=== PATIENT | female | born 1980 ===

== ENCOUNTER 2017-04-12 15:59 | Emergency (ER) | payer MEDICAID ==
[2017-04-12 16:20] VITALS: BP 123/50; PULSE 83; RESP 16; TEMP 97.9; O2SAT 100
--- NOTE | 2017-04-12 17:20 | ED PDOC ---
HPI: CCC, URI, Sore Throat Time Seen by Provider: 04/12/17 16:52 Chief Complaint (Nursing): Cough, Cold, Congestion Chief Complaint (Provider): COugh, cold, congestion History Per: Patient History/Exam Limitations: no limitations Have you had recent travel within the past 21 days to any of the following countries: [place], [place], [place] or [place]?: No Onset/Duration Of Symptoms: Days Current Symptoms Are (Timing): Still Present Location Of Pain: Throat Associated Symptoms: Fever (tactile) Additional History Per: Patient Additional Complaint(s): 36yo female presents to the ED complaining of cold, congestion and tactile fever for the past week. Patient additionally reports a productive cough and general malaise. She denies taking any medications for her symptoms. Patient denies any recent foreign travels, known sick contacts. She offers no additional medical complaints. Past Medical History Vital Signs: Last Vital Signs Temp 97.9 F 04/12/17 16:17 Pulse 83 04/12/17 16:17 Resp 16 04/12/17 16:17 BP 123/50 L 04/12/17 16:17 Pulse Ox 100 04/12/17 17:20 - Family History Family History: States: Diabetes - Home Medications Home Medications: Ambulatory Orders Medication Instructions Recorded Cyclobenzaprine [Flexeril] 5 mg PO Q8 PRN #15 tab 04/23/16 Naproxen [Naprosyn] 1 tab PO BID PRN #60 tab 04/23/16 Dextromethorphan Polistirex 30 mg PO BID #100 cleopatra.er.12h 04/12/17 [Delsym] Guaifenesin [Mucinex] 600 mg PO BID #14 tab.er.12h 04/12/17 Ketotifen Fumarate [Eye Itch 1 - 2 ml OP BID #10 ml 04/12/17 Relief] - Allergies Allergies/Adverse Reactions: Allergies Allergy/AdvReac Type Severity Reaction Status Date / Time No Known Allergies Allergy Verified 04/12/17 16:17 Review of Systems Constitutional: Positive for: Fever, Chills, Malaise Respiratory: Positive for: Cough, Sputum Neurological: Positive for: Headache Physical Exam - Reviewed Nursing Documentation Reviewed: Yes Vital Signs Reviewed: Yes - Physical Exam Appears: Positive for: Non-toxic, No Acute Distress Head Exam: Positive for: ATRAUMATIC, NORMAL INSPECTION, NORMOCEPHALIC Skin: Positive for: Warm, Dry Eye Exam: Positive for: EOMI, PERRL ENT: Positive for: Normal ENT Inspection, TM Is/Are (normal bilaterally), Sinus Pain/Drainage (post nasal drip noted), Other (normal turbinates). Negative for : Tonsillar Exudate, Tonsillar Swelling Neck: Positive for: Supple Cardiovascular/Chest: Positive for: Regular Rate, Rhythm Respiratory: Positive for: Normal Breath Sounds. Negative for: Respiratory Distress Lymphatic: Positive for: Adenopathy - ECG O2 Sat by Pulse Oximetry: 100 (RA) Pulse Ox Interpretation: Normal Medical Decision Making Medical Decision Making: Time: 1700 Impression: Viral illness Plan: -- Patient to be discharged home with Delsyn, Mucinex and eye drops. Advised to follow up with her PCP and to return to the ED if symptoms worsen or new symptoms arise. Scribe Attestation: Documented by Domi Hernandez acting as a scribe for DEWAYNE Amos Provider Attestation: All medical record entries made by the Scribe were at my direction and personally dictated by me. I have reviewed the chart and agree that the record accurately reflects my personal performance of the history, physical exam, medical decision making, and the department course for this patient. I have also personally directed, reviewed, and agree with the discharge instructions and disposition. Disposition - Clinical Impression Clinical Impression: Viral infection Counseled Patient/Family Regarding: Diagnosis, Need For Followup, Rx Given - Disposition Disposition: Routine/Home Disposition Time: 17:20 Condition: STABLE Prescriptions: Dextromethorphan Polistirex [Delsym] 30 mg PO BID #100 cleopatra.er.12h Guaifenesin [Mucinex] 600 mg PO BID #14 tab.er.12h Ketotifen Fumarate [Eye Itch Relief] 1 - 2 ml OP BID #10 ml Instructions: Viral Syndrome (ED) Forms: [employer] (German)
== END 2017-04-12 17:23 | disposition home or self-care (01) ==
LOC: H.ER 15:59
DX: B34.9 Viral infection, unspecified (principal)

== ENCOUNTER 2017-09-15 11:12 | Emergency (ER) | payer MEDICAID ==
[2017-09-15 11:22] VITALS: BMI 33.7
[2017-09-15 11:24] VITALS: RESP 18; TEMP 98.6
--- NOTE | 2017-09-15 13:07 | RAD ---
HISTORY: chest pain COMPARISON: 04/23/2016 TECHNIQUE: Chest PA and lateral FINDINGS: LUNGS: No active pulmonary disease. PLEURA: No significant pleural effusion identified. No pneumothorax apparent. CARDIOVASCULAR: Normal. OSSEOUS STRUCTURES: No significant abnormalities. VISUALIZED UPPER ABDOMEN: Normal. OTHER FINDINGS: None. IMPRESSION: No active disease.
--- NOTE | 2017-09-15 13:24 | ED PDOC ---
HPI: General Adult Time Seen by Provider: 09/15/17 12:04 Chief Complaint (Nursing): Chest Pain Chief Complaint (Provider): Left Upper Back, Neck, and Chest Pain History Per: Patient History/Exam Limitations: no limitations Onset/Duration Of Symptoms: Days (x 4) Have you had recent travel within the past 21 days to any of the following countries: [place], [place], [place] or [place]?: No Current Symptoms Are (Timing): Still Present Severity: Moderate Pain Scale Rating Of: 5 Additional Complaint(s): Patient is a 37 y/o female who presents to the ED complaining of left upper back , neck and chest pain since Wednesday that is worse with movement. Patient also notes that the pain radiates into the left upper extremity. 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 She also denies fever, cough, urinary symptoms, shortness of breath, abdominal pain, rash, weakness, changes in vision, nausea, vomiting, or diarrhea, and says she has no history of back problems. She has not taken anything for her symptoms prior to arrival in ED. 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 - Surgical History Other surgeries: tummy tuck - Family History Family History: States: Diabetes, Hypertension - Social History Current smoker - smoking cessation education provided: No Alcohol: Social Drugs: Denies - Home Medications Home Medications: Ambulatory Orders Medication Instructions Recorded Cyclobenzaprine [Flexeril] 5 mg PO Q8 PRN #15 tab 04/23/16 Naproxen [Naprosyn] 1 tab PO BID PRN #60 tab 04/23/16 Dextromethorphan Polistirex 30 mg PO BID #100 cleopatra.er.12h 04/12/17 [Delsym] Guaifenesin [Mucinex] 600 mg PO BID #14 tab.er.12h 04/12/17 Ketotifen Fumarate [Eye Itch 1 - 2 ml OP BID #10 ml 04/12/17 Relief] Cyclobenzaprine [Cyclobenzaprine 10 mg PO TID PRN #12 tab 09/15/17 HCl] Naproxen 500 mg PO BID PRN #20 ect 09/15/17 - Allergies Allergies/Adverse Reactions: Allergies Allergy/AdvReac Type Severity Reaction Status Date / Time No Known Allergies Allergy Verified 09/15/17 11:51 Review of Systems ROS Statement: Except As Marked, All Systems Reviewed And Found Negative Constitutional: Negative for: Fever, Chills, Sweats Eyes: Negative for: Pain, Vision Change Cardiovascular: Positive for: Chest Pain Respiratory: Negative for: Cough, Shortness of Breath Gastrointestinal: Negative for: Nausea, Vomiting, Abdominal Pain, Diarrhea Genitourinary Female: Negative for: Dysuria, Frequency Musculoskeletal: Positive for: Neck Pain (left sided), Arm Pain (left), Back Pain (left upper) Skin: Negative for: Rash Neurological: Negative for: Weakness Physical Exam - Reviewed Nursing Documentation Reviewed: Yes Vital Signs Reviewed: Yes - Physical Exam Appears: Positive for: Well, No Acute Distress Head Exam: Positive for: ATRAUMATIC, NORMOCEPHALIC Skin: Positive for: Normal Color, Warm, Dry Eye Exam: Positive for: EOMI, PERRL ENT: Positive for: Pharynx Is (clear, uvula midline.) Neck: Positive for: Supple ((-) midline tenderness). Negative for: Painless ROM (pain with lateral flexion otherwise ROM intact) Cardiovascular/Chest: Positive for: Regular Rate, Rhythm ((+)reproducible anterior chest wall pain). Negative for: Murmur, Bradycardia Respiratory: Positive for: Normal Breath Sounds. Negative for: Decreased Breath Sounds, Accessory Muscle Use, Respiratory Distress Gastrointestinal/Abdominal: Positive for: Soft. Negative for: Tenderness, Mass , Distended, Guarding Back: Positive for: Muscle Spasm (left parathoracic area; reproducible tenderness to left parathoracic and paracervical regions). Negative for: L CVA Tenderness, R CVA Tenderness, Vertebral Tenderness Extremity: Positive for: Normal ROM, Capillary Refill (<2 seconds). Negative for: Pedal Edema, Deformity, Swelling Neurologic/Psych: Positive for: Alert, street light inspector II-XII (intact), Oriented, Mood/ Affect (appropriate), Gait (steady). Negative for: Motor/Sensory Deficits ( strength symmetrical), Aphasia, Facial Droop - ECG Interpretation Of ECG: NSR @ 69bpm (-) ST elevations (-) ectopy; normal axis. O2 Sat by Pulse Oximetry: 97 (RA) Pulse Ox Interpretation: Normal Medical Decision Making Medical Decision Making: Time: 12:43 Initial Impression: Muscle Spasm of Back; Acute neck, back, and chest wall pain Initial Plan: --Chest XR --Troponin --EKG --Toradol IV --Ultram PO --Valium PO Patient states she is not driving home. 1255 EKG reviewed. 1310 Pending Troponin. CXR reviewed, radiology reading follows: HISTORY: chest pain COMPARISON: 04/23/2016 TECHNIQUE: Chest PA and lateral FINDINGS: LUNGS: No active pulmonary disease. PLEURA: No significant pleural effusion identified. No pneumothorax apparent. CARDIOVASCULAR: Normal. OSSEOUS STRUCTURES: No significant abnormalities. VISUALIZED UPPER ABDOMEN: Normal. OTHER FINDINGS: None. IMPRESSION:No active disease. 1400 Patient asleep in ED bed, no acute distress noted. Awaiting lab results. 1440 Troponin reviewed. Diagnostic results d/w the patient in great detail. Diagnosis of acute muscle spasm of back/neck, chest wall pain d/w the patient. On re-evaluation, patient reports improvement of symptoms, denies any chest pain at this time. On exam, patient remains AAOx3, in no acute distress. Lungs clear to auscultation, cardiac RRR, abdomen soft, non-tender, repeat neuro exam shows no focal findings. Based on history, exam and diagnostic results, plan will be for outpatient follow up. Patient instructed to follow-up with pmd / referral provided / the clinic in 1- 2 days without fail. Advised to take medication as prescribed. Return to the emergency room at any time for any new or worsening symptoms. Patient states he/ she fully agrees with and understands discharge instructions. States that he/ she agrees with the plan and disposition. Verbalized and repeated discharge instructions and plan. I have given the patient opportunity to ask any additional questions. Scribe Attestation: Documented by Yaya Haque, acting as a scribe for Yesy Dumas PA-C Provider Scribe Attestation: All medical record entries made by the Scribe were at my direction and personally dictated by me. I have reviewed the chart and agree that the record accurately reflects my personal performance of the history, physical exam, medical decision making, and the department course for this patient. I have also personally directed, reviewed, and agree with the discharge instructions and disposition. Disposition - Clinical Impression Clinical Impression: Chest wall pain, Spasm of thoracic back muscle, Neck pain on left side, Back pain associated with peripheral numbness - Patient ED Disposition Is Patient to be Admitted: No Counseled Patient/Family Regarding: Studies Performed, Diagnosis, Need For Followup, Rx Given - Disposition Referrals: Gilbert Cosme PA [Advanced Practice Nurse] - Disposition: Routine/Home Disposition Time: 14:45 Condition: IMPROVED Prescriptions: Cyclobenzaprine [Cyclobenzaprine HCl] 10 mg PO TID PRN #12 tab PRN Reason: Muscle Spasm Naproxen 500 mg PO BID PRN #20 ect PRN Reason: Pain, Moderate (4-7) Instructions: Radiculopathy, Neck Pain, Chest Pain That Is Not Caused by the Heart (DC), Upper Back Pain, Muscle Spasms (DC) Forms: [employer] (Frisian) Print Language: TAJIK - POA Present On Arrival: None Results - Lab Results Lab Results: 09/15/17 14:05 Troponin I < 0.0120
[2017-09-15 14:59] VITALS: BP 122/73; PULSE 60
[2017-09-15 15:01] VITALS: O2SAT 97
== END 2017-09-15 15:11 | disposition home or self-care (01) ==
LOC: H.ER 11:12
DX: R07.89 Other chest pain (principal); M62.830 Muscle spasm of back; R20.0 Anesthesia of skin; M54.2 Cervicalgia
CPT/HCPCS: 71046; 81025; 84484; 96374; 99283; J1885